=== PATIENT | male | born 1995 | race Caucasian/White ===

== ENCOUNTER 2017-09-16 19:11 | Emergency (ER) | payer SELFPAY ==
[~2017-09-16] VITALS: Ht 188 cm; Wt 97.7 kg
[~2017-09-16 19:11] MED LIST: MOTRIN800 MG PO; PREDNISONE20 MG PO
[2017-09-16 20:02] LABS: HEMATOCRIT 44.2 % (38.0-50.0); HEMOGLOBIN 16.1 G/DL (12.5-16.6); MCH 31.9 PG (29.0-34.0); MCHC 36.4 G/DL (30.0-36.0); MCV 87.7 FL (86-99); PLATELET COUNT 230 K/uL (156-360); RBC DIS.WIDTH-CV 12.5 % (11.8-14.6); RBC DIS.WIDTH-SD 39.9 % (39-53); RED BLOOD COUNT 5.04 M/uL (4.00-5.50); WHITE BLOOD COUNT 6.5 K/uL (4.1-10.2)
[2017-09-16 20:23] LABS: TROP-I INTERPRETATION NEGATIVE; TROPONIN-I 0.01 ng/mL (0.0-0.30)
[2017-09-16 20:27] LABS: CHLORIDE 105 mEq/L (99-109); POTASSIUM 3.6 mEq/L (3.7-5.4); SODIUM 136 mEq/L (136-147)
[2017-09-16 20:28] LABS: GLUCOSE 101 mg/dL (70-99)
[2017-09-16 20:32] LABS: GFR ESTIMATE (CALCULATED) > 59 mL/min/ (58.99-99999)
[2017-09-16 20:33] LABS: UREA NITROGEN (BUN) 17 mg/dL (9-23)
[2017-09-16] MEDS ORDERED: MOTRIN800 MG PO (22:09)
[2017-09-16 23:04] VITALS: BP 117/79
== END 2017-09-16 23:05 | disposition home or self-care (01) ==
LOC: EME 19:11
DX: M94.0 Chondrocostal junction syndrome [Tietze] (principal); J45.909 Unspecified asthma, uncomplicated; Z87.891 Personal history of nicotine dependence
CPT/HCPCS: 71046; 80048; 84484; 85027; 93005; 99281; 99284; J1885